=== PATIENT | male | born 1960 | race Caucasian/White ===

== ENCOUNTER 2021-05-08 07:04 | Outpatient (CLI) | payer SELFPAY ==
--- NOTE | 2021-05-08 07:16 | US_ITS ---
WS: [id number] RIGHT UPPER QUADRANT ULTRASOUND HISTORY: ABD PAIN, RUQ COMPARISON: None available. Liver: 15.7 cm in length. Normal size liver. No bile duct dilatation or mass. Gallbladder: Normally distended gallbladder with no stones or wall thickening. CBD: 0.5 cm Pancreas: Completely obscured by bowel gas. Right kidney: 11.7 cm in length. Normal size and echogenicity. No hydronephrosis or mass. Aorta and IVC: Unremarkable abdominal aorta and IVC. No ascites. US/US abdomen limited 19897 IMPRESSION: 1. Normal gallbladder. 2. No biliary dilatation. 3. Pancreas not visualized.
== END 2021-05-08 07:05 | disposition home or self-care (01) ==
LOC: RAD 07:08
PROVIDERS: Visit Provider Electrodiagnostic Medicine
DX: R10.11 Right upper quadrant pain (principal)
CPT/HCPCS: 76705

== ENCOUNTER 2021-05-26 07:36 | Outpatient (CLI) | payer SELFPAY ==
--- NOTE | 2021-05-26 07:40 | NM_ITS ---
WS: [id number] NUCLEAR MEDICINE HIDA SCAN CLINICAL INFORMATION: BILIARY COLIC/RUQ ABDOMINAL PAIN TECHNIQUE: Following intravenous administration of 3.8 mCi of technetium 99m mebrofenin, images of th e abdomen were obtained over the course of 60 minutes. Next, gallbladder ejection fraction was determ ined by obtaining preprandial and one-hour postprandial images of the gallbladder following oral zafar stion of Ensure. COMPARISON: None. FINDINGS: Normal hepatic uptake at 5 minutes. Gallbladder is visualized by 15 minutes. No evidence of acute cho lecystitis. Normal small bowel activity. Normal gallbladder ejection fraction 56% within normal limits. No eviden ce of chronic cholecystitis. NM/NM hepatobiliary w phar* [id number] IMPRESSION: 1. No evidence of acute cholecystitis. 2. Gallbladder ejection fraction 56% within normal limits. 3. No evidence of chronic cholecystitis.
== END 2021-05-26 07:37 | disposition home or self-care (01) ==
PROVIDERS: PCP Electrodiagnostic Medicine; Visit Provider Electrodiagnostic Medicine
DX: K80.20 Calculus of gallbladder without cholecystitis without obstruction (principal); R10.11 Right upper quadrant pain
CPT/HCPCS: 78227; A9537

== ENCOUNTER 2025-01-01 10:57 | Outpatient (CLI) | payer OTHER, SELFPAY | END 2025-01-01 10:58 | disposition home or self-care (01) | LOC: SLEEP 11:00 | PROVIDERS: PCP Electrodiagnostic Medicine; Visit Provider Electrodiagnostic Medicine | DX: G47.33 Obstructive sleep apnea (adult) (pediatric) (principal) | CPT/HCPCS: G0399 ==

== ENCOUNTER 2025-08-11 13:24 | Emergency (ER) | payer OTHER, SELFPAY ==
[2025-08-11 13:52] VITALS: BP 176/94; PULSE 63; RESP 16; TEMP 36.3; O2SAT 99
--- NOTE | 2025-08-11 15:38 | USR_ITS ---
PROCEDURE INFORMATION: Exam: US Duplex Right Lower Extremity Veins, Limited Exam date and time: 08/11/2025 3:58 PM Age: 65 years old Clinical indication: Swelling (edema) of limb; Lower extremity, left; Additional info: Leg pain swelling TECHNIQUE: Imaging protocol: Real-time duplex ultrasound of the right extremity with 2-D almazan scale, color Doppler flow and spectral waveform analysis including responses to compression and other maneuvers (when performed) with image documentation. Limited exam was focused on the right lower extremity veins. COMPARISON: No relevant prior studies available. FINDINGS: Right deep veins: Unremarkable. The common femoral, femoral, proximal profunda femoral, popliteal, posterior tibial and peroneal veins are patent without thrombus. Normal Doppler waveforms. Normal compressibility and/or augmentation response. Superficial veins: Greater saphenous vein at the saphenofemoral junction is patent without thrombus. Soft tissues: Unremarkable. US/[place] [id number] IMPRESSION: No sonographic evidence of deep vein thrombosis.
--- NOTE | 2025-08-11 15:55 | ED_ITS ---
HPI - Extremity Problem General: Chief complaint: Extremity Injury, Lower Stated complaint: R leg possible Blood Clot Time Seen by Provider: 08/11/25 15:37 History of Present Illness: 65-year-old male presents emergency room concerned about a blood clot in his right leg. He says he has noticed some swelling in his leg no chest pain no shortness of breath. He recently had been a long trip driving a semi-. No previous DVTs or PEs he is not on any anticoagulants. Associated symptoms: Deny chest pain, fever(s) or rash Related Data Home Medications ?Medication ?Instructions ?Recorded ?Confirmed lisinopril 20 mg tablet mg PO 08/11/25 08/11/25 metoprolol succinate 100 mg mg PO 08/11/25 08/11/25 tablet,extended release 24 hr omeprazole 40 mg capsule,delayed mg PO 08/11/25 release Previous Rx's ?Medication ?Instructions ?Recorded diclofenac sodium 75 mg 75 mg PO Q12H PRN pain #20 t abs 08/11/25 tablet,delayed release Allergies Allergy/AdvReac Type Severity Reaction Status Date / Time No Known Allergies Allergy Verified 08/11/25 13:55 Review of Systems Const: Denies: fever(s) or chills Card: Denies: chest pain Resp: Denies: dyspnea GI: Denies: abdominal pain : Denies: dysuria, urinary frequency or urinary urgency Musc: Denies: neck pain or back pain Skin/Breast: Denies: rash PFSH ED PFSH: Social History Smoking and tobacco/nicotine status: never used tobacco/nicotine Physical Exam Const: GENERAL APPEARANCE: cooperative ORIENTATION/CONSCIOUSNESS: Yes awake, Yes oriented to person, Yes oriented to place and Yes oriented to time HENMT: COMMON NORMALS: normocephalic, atraumatic and hearing grossly normal bilaterally HEAD & SCALP: normocephalic and atraumatic Resp: COMMON NORMALS: normal respiratory effort, No retractions, No use of accessory muscles and clear to auscultation bilaterally AUSCULTATION: clear to auscultation bilaterally Cardio: COMMON NORMALS: regular rate, regular rhythm and No murmurs present (Cardio) RATE: regular rate RHYTHM: regular rhythm GI: COMMON NORMALS: Soft to palpation and No hepatosplenomegaly present AUSCULTATION: Yes normoactive bowel sounds PALPATION: Yes Soft to palpation, No Tenderness to palpation present (GI), No Guarding due to palpation present (GI) and Yes No hepatosplenomegaly present Extremity: COMMON NORMALS: normal to inspection, capillary refill normal, no clubbing, cyanosis or edema, no calf tenderness and no pedal edema Neuro: SENSORIUM/ORIENTATION: Yes oriented to person, Yes oriented to place and Yes oriented to time Skin: COMMON NORMALS: no rashes or lesions noted GENERAL SKIN EXAM: no rashes or lesions noted Course Vital Signs: Vital signs: Vital Signs Temperature 97.4 F L 08/11/25 13:52 Pulse Rate 62 08/11/25 17:08 Respiratory Rate 16 08/11/25 13:52 Blood Pressure 153/91 08/11/25 17:08 Pulse Oximetry 97 08/11/25 17:08 Oxygen Delivery Me thod Room Air 08/11/25 16:27 MDM - Extremity (Nontraumatic) Medical Decision Making Exam normal. Ultrasound for venous duplex was also negative for clot. He does have a mild joint effusion there is no Lopez's cyst on the ultrasound suspect he sprained it he described jumping off of a truck when it seemed to hurt. After some discussion we ultimately decided on nonweightbearing on crutches with a knee immobilizer gave diclofenac to use for discomfort and referral to orthopedics. Lab Data Radiology Impressions Venous Duplex 08/11/25 15:38 IMPRESSION: No sonographic evidence of deep vein thrombosis. Knee X-Ray 08/11/25 16:31 IMPRESSION: Small effusion and mild nonspecific anterior soft tissue swelling. All radiology interpretation(s) finalized by discharge Discharge Plan Discharge Patient Disposition: Home Clinical Impression: Sprain of right knee Condition: Stable Prescriptions: New diclofenac sodium 75 mg tablet,delayed release (DR/EC) 75 mg PO Q12H PRN (Reason: pain) Qty: 20 0RF No Action lisinopril 20 mg tablet PO metoprolol succinate 100 mg tablet extended release 24 hr PO omeprazole 40 mg capsule,delayed release(DR/EC) PO Discharge Orders: Discharge ED (Routine); Ordered 08/11/25 Ordered By: Alex Willoughby Referrals: Chano Redding DO [Primary Care Provider, Family Practice] Discharge Diet: Usual diet Discharge Activity: Limit activity as instructed Patient Instructions: Opioid Safety, Pain Management, Patient Portal & Rick Instructions Activity Restrictions/Additional Instructions: Thank you for choosing [facility] for your healthcare needs today. It is very important that you follow up as instructed or that you return to the Emergency Department should you have concerns or if your condition changes or worsens in any way. Emergency department visits are focused on emergent con ditions, in some cases you may require further evaluation on an outpatient basis. You are seen in the emergency room with right knee pain ultrasound did not show any blood clot in the leg x-ray was negative. Will start you on diclofenac to use as needed and case management make arrangements for follow-up with orthopedics. (Please note that included in your discharge packet is information concerning opioid safety and pain management. This information is given to all patients were discharged from the ER regardless of their discharge diagnosis or the medicines they usually take or are prescribed.) Stand Alone Forms: Work/School Release Print Language: Citizen Of [place] Coding Level of Care Code ED Roller [employer] for Ino Medrano
[2025-08-11 16:27] VITALS: BP 161/94; PULSE 59; O2SAT 98
--- NOTE | 2025-08-11 16:31 | XRR_ITS ---
PROCEDURE INFORMATION: Exam: XR Right Knee Exam date and time: 08/11/2025 4:33 PM Age: 65 years old Clinical indication: Pain; Knee; Right TECHNIQUE: Imaging protocol: Radiologic exam of the right knee. Views: 3 views. COMPARISON: [place] [id number] 08/11/2025 3:58 PM FINDINGS: Bones/joints: No radiographic evidence of acute fracture or dislocation. Alignment anatomic. Joint spaces preserved. Small suprapatellar effusion. Soft tissues: Mild nonspecific anterior soft tissue swelling. XR/XR knee RT 3V* [id number] IMPRESSION: Small effusion and mild nonspecific anterior soft tissue swelling.
[2025-08-11 17:08] VITALS: BP 153/91; PULSE 62; O2SAT 97
--- NOTE | 2025-08-13 07:57 | DCPLANNER ---
messaged ortho for er f/u
== END 2025-08-11 17:10 | disposition home or self-care (01) ==
PROVIDERS: Emergency Provider Family Medicine; PCP Electrodiagnostic Medicine
DX: S83.91XA Sprain of unspecified site of right knee, initial encounter (principal); X58.XXXA Exposure to other specified factors, initial encounter
CPT/HCPCS: 73562; 93971; 99284